=== PATIENT | male | born 1970 | race Caucasian/White ===

== ENCOUNTER 2017-07-16 16:49 | Emergency (ER) | payer SELFPAY ==
[2017-07-16 16:58] VITALS: BP 150/102
== END 2017-07-16 22:10 | disposition left against medical advice (07) ==
LOC: ED 16:49
DX: R03.0 Elevated blood-pressure reading, without diagnosis of hypertension (principal); Z53.21 Procedure and treatment not carried out due to patient leaving prior to being seen by health care provider

== ENCOUNTER 2019-02-26 11:46 | Outpatient (CLI) | payer OTHER ==
[2019-02-26 12:49] LABS: Hemoglobin 14.2 gm/dl (11.8-15.2); Mean Corpuscular HGB Conc 34 % (32-34); Mean Corpuscular Volume 84 fl (84-94); Platelet Count 304 K/mm3 (140-440); Red Blood Count 4.97 M/mm3 (3.65-5.03); Red Cell Distribution Width 13.6 % (13.2-15.2)
[2019-02-26 12:54] LABS: Alanine Aminotransferase 18 units/L (7-56); Albumin 4.8 g/dL (3.9-5); BUN/Creatinine Ratio 14; Blood Urea Nitrogen 13 mg/dL (9-20); Calcium 9.4 mg/dL (8.4-10.2); Hemolysis Index 8; LDL Cholesterol,Direct TNR mg/dL (50-130)
[2019-02-26 13:02] LABS: Bilirubin,Urine NEG (Negative); Blood,Urine MOD (Negative); Color,Urine Yellow (Yellow); Mucus,Urine FEW /HPF; Protein,Urine <15 mg/dL mg/dL (Negative); Urobilinogen,Urine < 2.0 mg/dL (<2.0); WBC,Urine < 1.0 /HPF (0.0-6.0)
[2019-02-26 13:05] LABS: Chol/HDL Ratio 9.88 %; HDL Cholesterol 26 mg/dL (40-59)
[2019-03-01 15:08] LABS: Vitamin D, 25-OH, D2 <4 ng/mL
== END 2019-02-26 11:47 | disposition home or self-care (01) ==
LOC: LAB 11:46
PROVIDERS: ATTEND Internal Medicine
DX: Z13.220 Encounter for screening for lipoid disorders (principal); Z13.21 Encounter for screening for nutritional disorder; Z13.29 Encounter for screening for other suspected endocrine disorder
CPT/HCPCS: 36415; 80053; 80061; 81001; 82306; 82607; 83036; 84443; 85027

== ENCOUNTER 2019-03-15 09:37 | Outpatient (CLI) | payer OTHER ==
--- NOTE | 2019-03-15 11:33 | Vascular Lab Report ---
DUPLEX DOPPLER LOWER EXTREMITY ARTERIAL, RIGHT INDICATION: 173.9 PERIPHERAL VASCULAR DISEASE, UNSPECIFIED. Burning sensation in right leg for 2 weeks. TECHNIQUE: Arterial duplex examination of the right lower extremity was performed using B-mode, color flow and s pectral Doppler assessment. FINDINGS: RIGHT: Common Femoral Artery: PSV 93 cm/sec. Triphasic waveform. Proximal SFA: PSV 83 cm/sec. Triphasic waveform. Mid SFA: PSV 73 cm/sec. Triphasic waveform. Distal SFA: PSV 62 cm/sec. Triphasic waveform. Popliteal artery: PSV 53 cm/sec. Triphasic waveform. Posterior tibial artery: PSV 50 cm/sec. Triphasic waveform. Anterior tibial artery: PSV 53 cm/s. Triphasic waveform. Dorsalis Pedis Artery: PSV 43 cm/sec. Triphasic waveform. IMPRESSION: No significant lower extremity peripheral artery disease. Doppler Waveform: * Triphasic is normal. * Biphasic is abnormal if clear transition from triphasic signal along vascular tree. * Monophasic is abnormal. Signer Name: Justyn Daniel Jr, MD Signed: 03/15/2019 11:29 AM Workstation Name: [id number]
== END 2019-03-15 09:38 | disposition home or self-care (01) ==
LOC: VAS 09:37
PROVIDERS: ATTEND Internal Medicine
DX: I73.9 Peripheral vascular disease, unspecified (principal)

== ENCOUNTER 2019-07-05 10:46 | Outpatient (CLI) | payer OTHER ==
[2019-07-05 14:28] LABS: Chol/HDL Ratio 6.93 %
== END 2019-07-05 10:47 | disposition home or self-care (01) ==
LOC: LAB 10:46
PROVIDERS: ATTEND Internal Medicine
DX: E78.5 Hyperlipidemia, unspecified (principal); R73.03 Prediabetes
CPT/HCPCS: 36415; 80061; 83036

== ENCOUNTER 2019-07-29 08:12 | Outpatient (CLI) | payer OTHER ==
--- NOTE | 2019-07-29 09:20 | Ultrasound Report ---
ULTRASOUND ABDOMEN, COMPLETE INDICATION: CHRONIC ABDOMINAL PAIN. COMPARISON: No relevant prior imaging study available. FINDINGS: Pancreas: No significant abnormality. Abdominal Aorta: No significant abnormality. IVC: No significant abnormality. Liver: The liver measures 14.3 cm in length. The liver parenchyma is mildly echogenic suggesting mil d fatty infiltration or other parenchymal disease. No focal liver lesion or surface nodularity. Ariana l hepatopedal blood flow in the main portal vein. Gallbladder: No significant abnormality. Bile ducts: No significant abnormality. Common bile duct measures 2.5 mm. Kidneys: Right: 12.3 cm in length. No significant abnormality. Left: 12.5 cm in length. No signif icant abnormality. Spleen: No significant abnormality. Free fluid: None. Additional Findings: Images through the bladder are unremarkable. IMPRESSION: Slightly echogenic liver parenchyma suggesting mild fatty infiltration or other parenchymal disease. Signer Name: Justyn Daniel Jr, MD Signed: 07/29/2019 9:15 AM Workstation Name: [id number]
== END 2019-07-29 08:13 | disposition home or self-care (01) ==
LOC: US 08:12
PROVIDERS: ATTEND Internal Medicine
DX: R10.9 Unspecified abdominal pain (principal)
CPT/HCPCS: 76700

== ENCOUNTER 2019-12-31 09:19 | Outpatient (CLI) | payer OTHER ==
--- NOTE | 2019-12-31 10:33 | XRay Report ---
LUMBOSACRAL SPINE 5 VIEWS INDICATION: LOWER BACK PAIN. COMPARISON: None. IMPRESSION: Normal alignment. No significant discogenic DJD or facet arthropathy. No acute osseous or soft tissue abnormality. PELVIS ONE VIEW INDICATION: Lower back pain and hip pain after fall. COMPARISON: None. IMPRESSION: No acute osseous or soft tissue abnormality. Mild osteoarthritic changes are identifi ed at both hips. Signer Name: Justyn Daniel Jr, MD Signed: 12/31/2019 10:29 AM Workstation Name: [id number]
== END 2019-12-31 09:20 | disposition home or self-care (01) ==
LOC: XRAY 09:19
PROVIDERS: ATTEND Internal Medicine
DX: M16.0 Bilateral primary osteoarthritis of hip (principal)
CPT/HCPCS: 72110; 72170

== ENCOUNTER 2020-11-02 08:50 | Outpatient (CLI) | payer OTHER ==
[2020-11-02 09:53] LABS: Alanine Aminotransferase 28 units/L (7-56); Albumin 4.4 g/dL (3.9-5); Chol/HDL Ratio 6.11 %; HDL Cholesterol 27 mg/dL (40-59); LDL Cholesterol,Direct TNR mg/dL (50-130)
[2020-11-02 09:59] LABS: Bilirubin,Direct < 0.2 mg/dL (0-0.2)
== END 2020-11-02 08:51 | disposition home or self-care (01) ==
LOC: LAB 08:50
PROVIDERS: ATTEND Internal Medicine
DX: E78.5 Hyperlipidemia, unspecified (principal); R73.03 Prediabetes; K76.0 Fatty (change of) liver, not elsewhere classified
CPT/HCPCS: 36415; 80061; 80076; 83036

== ENCOUNTER 2021-04-23 08:20 | Outpatient (CLI) | payer OTHER ==
[2021-04-23 09:05] LABS: Chol/HDL Ratio 4.93 %
== END 2021-04-23 08:21 | disposition home or self-care (01) ==
LOC: LAB 08:20
PROVIDERS: ATTEND Internal Medicine
DX: E11.9 Type 2 diabetes mellitus without complications (principal); E78.5 Hyperlipidemia, unspecified
CPT/HCPCS: 36415; 80061; 83036